=== PATIENT | female | born 1955 | race Caucasian/White ===

== ENCOUNTER → 2017-06-04 | Outpatient (CLI) | payer SELFPAY ==
[~2017-06-04] MED LIST: ASPI-1181 PO; FURO40TA5 PO; INSLAN SQ; INSU100C6 SQ; LOSA100T29 PO; METO-391 PO; POTA-79 PO
== END ==
LOC: RAH 13:01
PROVIDERS: ATTEND Physician Assistant Medical
DX: Z12.31 Encounter for screening mammogram for malignant neoplasm of breast (principal)
CPT/HCPCS: 77067

== ENCOUNTER → 2018-08-03 | Outpatient (CLI) | payer SELFPAY ==
[~2018-08-03] MED LIST changes: -LOSA100T29 PO; +LOSA100T58 PO
== END | disposition home or self-care (01) ==
LOC: RAH 11:13
PROVIDERS: ATTEND Physician Assistant Medical
DX: Z12.31 Encounter for screening mammogram for malignant neoplasm of breast (principal)
CPT/HCPCS: 77067

== ENCOUNTER → 2019-09-17 | Outpatient (CLI) | payer SELFPAY ==
[~2019-09-17] MED LIST changes: -ASPI-1181 PO; +ASPI-1443 PO
== END | disposition home or self-care (01) ==
LOC: RAH 07:29
PROVIDERS: ATTEND Physician Assistant Medical
DX: Z12.31 Encounter for screening mammogram for malignant neoplasm of breast (principal); R94.5 Abnormal results of liver function studies; Z90.49 Acquired absence of other specified parts of digestive tract
CPT/HCPCS: 76705; 77067

== ENCOUNTER 2019-10-13 09:24 | Emergency (ER) | payer BC, SELFPAY ==
[2019-10-13] MEDS ORDERED: ONDANSETRON HCL 4 MG/2 ML VIAL ONE (09:46)
[2019-10-13] MEDS ORDERED: FENTANYL CITRATE PF 50 MCG/1 ML 2ML VIAL ONE (09:47)
[2019-10-13 09:49] LABS: BASOPHILS % (AUTO) 0.2 % (0.0-5.0); EOSINOPHILS % (AUTO) 0.1 % (0.0-8.0); LYMPHOCYTES % (AUTO) 7.6 % (21.0-51.0); MEAN CORPUSCULAR HEMOGLOBIN 30.3 pg (27.0-33.0); MEAN CORPUSCULAR HGB CONC 32.4 g/dL (32.0-36.0); MEAN CORPUSCULAR VOLUME 93.6 fL (79-99); MONOCYTES % (AUTO) 9.5 % (3.0-13.0); NEUTROPHILS % (AUTO) 82.1 % (40.0-77.0); PLATELET COUNT (AUTO) 83 K/uL (130-400); RED BLOOD CELL COUNT(AUTO) 4.06 MIL/uL (4.00-5.50); RED CELL DISTRIBUTION WIDTH 13.8 % (11.0-15.5); WHITE BLOOD COUNT (AUTO) 8.6 K/uL (4.8-10.8)
[2019-10-13 10:07] LABS: BILIRUBIN,DIRECT 0.7 mg/dL (0.0-0.3); BILIRUBIN,TOTAL 2.1 mg/dL (0.2-1.0); CREATININE 1.6 mg/dL (0.5-1.5); POTASSIUM 4.7 mmol/L (3.5-5.1)
[2019-10-13 10:17] LABS: INR 1.11 (0.85-1.15); PARTIAL THROMBOPLASTIN TIME 28.5 SEC (26.3-35.5); PROTHROMBIN TIME 11.9 SEC (9.6-11.6)
[2019-10-13] MEDS ORDERED: MORPHINE SULFATE 4 MG/1ML SYG ONE (11:05)
== END 2019-10-13 14:32 | disposition home or self-care (01) ==
LOC: EDH 09:24
DX: S42.295A Other nondisplaced fracture of upper end of left humerus, initial encounter for closed fracture (principal); S00.83XA Contusion of other part of head, initial encounter; M25.522 Pain in left elbow; R07.89 Other chest pain; I10 Essential (primary) hypertension; E11.9 Type 2 diabetes mellitus without complications; Z90.710 Acquired absence of both cervix and uterus; Z90.49 Acquired absence of other specified parts of digestive tract; W01.0XXA Fall on same level from slipping, tripping and stumbling without subsequent striking against object, initial encounter; Y93.89 Activity, other specified; Y92.89 Other specified places as the place of occurrence of the external cause; Y99.8 Other external cause status
CPT/HCPCS: 36415; 70450; 71250; 72125; 73030; 73080; 73562; 80048; 80076; 82550; 85025; 85610; 85730; 93005; 96374; 96375; 99285; J2270; J2405; J3010

== ENCOUNTER 2019-11-15 13:34 | Inpatient (IN) | payer BC ==
[~2019-11-15] VITALS: Ht 162.6 cm; Wt 117.5 kg
[2019-11-15] MEDS ORDERED: ONDANSETRON HCL 4 MG/2 ML VIAL IV PRN (14:00)
[2019-11-15] MEDS ORDERED: LACTULOSE 20 GM/30 ML UDCUP PO PRN (14:00)
[2019-11-15] MEDS ORDERED: MAG HYDROX/AL HYDROX/SIMETH ES 30 ML SUSP UDCUP PO PRN (14:00)
[2019-11-15] MEDS ORDERED: ACETAMINOPHEN 325 MG TAB PO PRN (14:00)
[2019-11-15] MEDS ORDERED: GLUCAGON 1MG KIT 1 MG ML IM PRN (14:00)
[2019-11-15] MEDS ORDERED: POTASSIUM CHLORIDE 10% ELIXIR 20 MEQ/15 ML UDCUP PO PRN (14:00)
[2019-11-15] MEDS ORDERED: DEXTROSE 50%-WATER 50 ML DISP.SYRIN IV PRN (14:00)
[2019-11-15] MEDS ORDERED: LIDOCAINE HCL-MPF 1% 2ML VIAL IJ PRN (14:00)
[2019-11-15] MEDS ORDERED: DiphenhydrAMINE HCL 50 MG/ML VIAL IV PRN (14:00)
[2019-11-15] MEDS ORDERED: POTASSIUM CHLORIDE 20MEQ/100ML 100 ML IV PRN (14:00)
[2019-11-15] MEDS: METOLAZONE 2.5 MG TABLET PO SCH (14:00)
[2019-11-15] MEDS ORDERED: FURO40TA5 PO (14:12)
[2019-11-15] MEDS ORDERED: METO5TAB7 PO (14:12)
[2019-11-15] MEDS ORDERED: FLUT1BLS IH (14:12)
[2019-11-15] MEDS ORDERED: HYDR-4153 PO (14:12)
[2019-11-15] MEDS ORDERED: POTA-79 PO (14:17)
[2019-11-15] MEDS ORDERED: ZOLP5TAB8 PO (14:17)
[2019-11-15] MEDS ORDERED: DULA1.5P SQ (14:17)
[2019-11-15] MEDS ORDERED: INSU200I SQ (14:17)
[2019-11-15] MEDS ORDERED: FOLIC ACID PO (14:19)
[2019-11-15 14:20] LABS: BASOPHILS % (AUTO) 0.4 % (0.0-5.0); HEMATOCRIT 30.6 % (36-48); LYMPHOCYTES % (AUTO) 12.6 % (21.0-51.0); MEAN CORPUSCULAR HEMOGLOBIN 31.8 pg (27.0-33.0); MEAN CORPUSCULAR HGB CONC 33.7 g/dL (32.0-36.0); MEAN CORPUSCULAR VOLUME 94.4 fL (79-99); MONOCYTES % (AUTO) 12.2 % (3.0-13.0); NEUTROPHILS % (AUTO) 72.6 % (40.0-77.0); PLATELET COUNT (AUTO) 78 K/uL (130-400); RED BLOOD CELL COUNT(AUTO) 3.24 MIL/uL (4.00-5.50); RED CELL DISTRIBUTION WIDTH 14.9 % (11.0-15.5); WHITE BLOOD COUNT (AUTO) 5.1 K/uL (4.8-10.8)
[2019-11-15 14:30] LABS: CREATININE 1.5 mg/dL (0.5-1.5); POTASSIUM 3.5 mmol/L (3.5-5.1)
[2019-11-15 14:35] LABS: ALBUMIN 2.4 g/dL (3.5-5.0); BILIRUBIN,DIRECT 0.8 mg/dL (0.0-0.3); BILIRUBIN,TOTAL 1.8 mg/dL (0.2-1.0)
[2019-11-15 14:38] LABS: INR 1.16 (0.85-1.15); PARTIAL THROMBOPLASTIN TIME 27.5 SEC (26.3-35.5); PROTHROMBIN TIME 12.5 SEC (9.6-11.6)
[2019-11-15 14:47] LABS: APPEARANCE,URINE Clear (CLEAR); BILIRUBIN,URINE Negative (NEGATIVE); COLOR,URINE Yellow (YELLOW); GLUCOSE, URINE (UA) Negative (NEGATIVE); KETONES,URINE Negative (NEGATIVE); LEUKOCYTE ESTERASE ,URINE Negative (NEGATIVE); NITRATE,URINE Negative (NEGATIVE); OCCULT BLOOD,URINE Negative (NEGATIVE); PROTEIN,URINE Negative (NEGATIVE); UROBILINOGEN,URINE 0.2 mg/dL (0.2-1.0)
[2019-11-15] MEDS ORDERED: POTASSIUM CHLORIDE 20 MEQ ERTAB PO ONE (15:05)
[2019-11-15] MEDS ORDERED: METOLAZONE 2.5 MG TABLET ONE (15:06)
[2019-11-15 15:38] LABS: ERYTHROCYTE SEDIMENTATION RATE 21 MM/HR (0-30)
[2019-11-15] MEDS ORDERED: LIDOCAINE HCL 1% 20 ML VIAL ONE (16:01)
[2019-11-15 17:08] VITALS: BP 155/59
[2019-11-15] MEDS ORDERED: CLONIDINE HCL 0.1 MG TABLET PO PRN (17:15)
--- NOTE | 2019-11-15 19:00 | NUR ---
MD Dr EDWARDS called and updated on pt.s status.
[2019-11-15] MEDS: ACETAMINOPHEN EXTRA STRENGTH 500 MG TABLET PO PRN (19:47)
[2019-11-15] MEDS: PROPRANOLOL HCL 20 MG TAB PO SCH (19:47)
[2019-11-15] MEDS: POTASSIUM CHLORIDE 20 MEQ ERTAB PO SCH ×2 (19:48→20:54)
[2019-11-15 19:49] VITALS: BP 133/42
[2019-11-15] MEDS: INSULIN HUMULIN R 100 UNIT/ML 3ML SQ SCH (19:54)
[2019-11-15] MEDS ORDERED: HYDRALAZINE HCL 25 MG TABLET PO SCH (21:00)
[2019-11-15] MEDS: FUROSEMIDE 10 MG/ML 4ML VIAL IVP SCH (21:04)
[2019-11-15] MEDS: ZOLPIDEM TARTRATE 5 MG TAB PO PRN (21:04)
--- NOTE | 2019-11-15 21:15 | NUR ---
LASIX Pt is on LASIX iv,has pitting edema to both legs and arms,elevated on pillows.
[2019-11-15] MEDS: POTASSIUM CHLORIDE 20 MEQ ERTAB PO PRN (23:11)
--- NOTE | 2019-11-15 23:14 | NUR ---
SLEEP Pt sleeping,respirations even and unlabored.
[2019-11-15 23:48] VITALS: BP 115/41
--- NOTE | 2019-11-16 01:25 | NUR ---
SLEEP Pt resting quietly,arousable.Love cath patent,draining clear,yellow urine.
[2019-11-16 03:42] VITALS: BP 118/52
[2019-11-16] MEDS: FUROSEMIDE 10 MG/ML 4ML VIAL IVP SCH ×3 (05:00→20:44)
[2019-11-16 05:19] LABS: HEMATOCRIT 32.3 % (36-48); MEAN CORPUSCULAR HEMOGLOBIN 30.8 pg (27.0-33.0); MEAN CORPUSCULAR HGB CONC 32.8 g/dL (32.0-36.0); MEAN CORPUSCULAR VOLUME 93.9 fL (79-99); RED BLOOD CELL COUNT(AUTO) 3.44 MIL/uL (4.00-5.50); RED CELL DISTRIBUTION WIDTH 14.8 % (11.0-15.5); WHITE BLOOD COUNT (AUTO) 6.8 K/uL (4.8-10.8)
[2019-11-16 05:27] LABS: CREATININE 1.6 mg/dL (0.5-1.5); POTASSIUM 3.7 mmol/L (3.5-5.1)
[2019-11-16] MEDS: INSULIN HUMULIN R 100 UNIT/ML 3ML SQ SCH ×4 (05:40→21:18)
[2019-11-16] MEDS: POTASSIUM CHLORIDE 20 MEQ ERTAB PO PRN (06:06)
[2019-11-16 07:49] VITALS: BP 118/44
[2019-11-16] MEDS ORDERED: TRAMADOL HCL 50 MG TABLET PO PRN (08:15)
[2019-11-16] MEDS ORDERED: SENNOSIDES 8.6 MG TABLET PO PRN (08:45)
[2019-11-16] MEDS ORDERED: METOPROLOL SUCCINATE 50 MG TAB.SR.24H PO SCH (09:00)
[2019-11-16] MEDS ORDERED: FOLIC ACID 1 MG TABLET PO SCH (09:00)
[2019-11-16] MEDS: POTASSIUM CHLORIDE 20 MEQ ERTAB PO SCH ×3 (09:00→20:44)
[2019-11-16] MEDS ORDERED: LOSARTAN 100 MG TABLET PO SCH (09:00)
[2019-11-16] MEDS: PROPRANOLOL HCL 20 MG TAB PO SCH ×2 (09:00→20:43)
--- NOTE | 2019-11-16 09:30 | NUR ---
DR. CHARLES AWARE OF CONSULT
[2019-11-16] MEDS: SPIRONOLACTONE 25 MG TAB PO SCH ×2 (09:58→20:44)
[2019-11-16] MEDS: METOLAZONE 2.5 MG TABLET PO SCH (09:59)
[2019-11-16 10:04] LABS: MEAN CORPUSCULAR HEMOGLOBIN 31.3 pg (27.0-33.0); MEAN CORPUSCULAR HGB CONC 33.2 g/dL (32.0-36.0); MEAN CORPUSCULAR VOLUME 94.2 fL (79-99); PLATELET COUNT (AUTO) 90 K/uL (130-400); RED BLOOD CELL COUNT(AUTO) 3.29 MIL/uL (4.00-5.50); WHITE BLOOD COUNT (AUTO) 5.7 K/uL (4.8-10.8)
[2019-11-16 10:19] LABS: % IRON SATURATION 29.6 % (22-44); INR 1.16 (0.85-1.15); PROTHROMBIN TIME 12.5 SEC (9.6-11.6)
[2019-11-16 10:20] LABS: ALBUMIN 2.3 g/dL (3.5-5.0); BILIRUBIN,TOTAL 1.7 mg/dL (0.2-1.0); CREATININE 1.6 mg/dL (0.5-1.5); POTASSIUM 3.7 mmol/L (3.5-5.1); TOTAL PROTEIN, SERUM 5.9 g/dL (6.0-8.3)
[2019-11-16 10:47] LABS: EOSINOPHILS % (MANUAL) 1 % (1-6); LYMPHOCYTES % (MANUAL) 15 % (22-44); MAN.DIFF COMMENT-IMPRESSION MANUAL DIFFERENTIAL; MONOCYTES % (MANUAL) 5 % (2-9); PLATELET MORPHOLOGY COMMENT DECREASED; SEGMENTED NEUTROPHILS % 79 % (40-70)
[2019-11-16 11:01] VITALS: BP 133/46
--- NOTE | 2019-11-16 13:23 | NUR ---
DCP IA done by Robert Harrell RN. As per Robert pt is independent prior to admission, lives at home with spouse. Has a cane. Denies any other equipments/services. uses [facility] for med. Feels safe to go back home, still drives and works, spouse able to assist with transportation and needs as necessary. Verified spouse phone #: , faxed correction to registration. DC plan to home once stable. CM to cont to follow up. Addendum: 11/16/19 at 1325 by BRIAN PAREKH LVN CM Amended: Links added.
[2019-11-16] MEDS: FLUTICASONE/VILANTEROL 1 EACH BLST.W.DEV IH SCH (13:33)
[2019-11-16] MEDS ORDERED: ALBUMIN (HUMAN) 25% 50 ML IV SCH (13:45)
[2019-11-16] MEDS: PHARMACY COMMUNICATION MISC SCH ×2 (16:30→22:30)
[2019-11-16 16:31] VITALS: BP 111/53
[2019-11-16 20:00] VITALS: BP 153/71
[2019-11-16] MEDS: ZOLPIDEM TARTRATE 5 MG TAB PO PRN (20:45)
[2019-11-16] MEDS: ACETAMINOPHEN EXTRA STRENGTH 500 MG TABLET PO PRN (20:45)
[2019-11-16 23:54] VITALS: BP 116/58
[2019-11-17 03:59] LABS: BASOPHILS % (AUTO) 0.6 % (0.0-5.0); EOSINOPHILS % (AUTO) 3.6 % (0.0-8.0); HEMATOCRIT 30.4 % (36-48); LYMPHOCYTES % (AUTO) 20.1 % (21.0-51.0); MEAN CORPUSCULAR HEMOGLOBIN 31.2 pg (27.0-33.0); MEAN CORPUSCULAR HGB CONC 33.2 g/dL (32.0-36.0); MEAN CORPUSCULAR VOLUME 93.8 fL (79-99); MONOCYTES % (AUTO) 14.5 % (3.0-13.0); PLATELET COUNT (AUTO) 87 K/uL (130-400); RED BLOOD CELL COUNT(AUTO) 3.24 MIL/uL (4.00-5.50); RED CELL DISTRIBUTION WIDTH 14.7 % (11.0-15.5)
[2019-11-17 04:00] VITALS: BP 137/60
[2019-11-17 04:29] LABS: CREATININE 1.5 mg/dL (0.5-1.5); MAGNESIUM 1.5 mg/dL (1.80-2.40); PHOSPHORUS 3.7 mg/dL (2.5-4.9); POTASSIUM 3.3 mmol/L (3.5-5.1); THYROID STIMULATING HORMONE 2.85 uIU/mL (0.36-3.74); URIC ACID 6.4 mg/dL (2.6-7.2)
[2019-11-17] MEDS: PHARMACY COMMUNICATION MISC SCH ×4 (04:30→22:30)
[2019-11-17] MEDS: FUROSEMIDE 10 MG/ML 4ML VIAL IVP SCH ×3 (04:43→22:00)
[2019-11-17 07:18] LABS: HEPATITIS A ANTIBODY IGM Negative (Negative)
[2019-11-17] MEDS: INSULIN HUMULIN R 100 UNIT/ML 3ML SQ SCH ×4 (07:30→20:23)
[2019-11-17] MEDS: TRAMADOL HCL 50 MG TABLET PO PRN (07:43)
[2019-11-17 08:00] VITALS: BP 113/43
[2019-11-17] MEDS: SPIRONOLACTONE 25 MG TAB PO SCH ×2 (09:12→20:10)
[2019-11-17] MEDS: FOLIC ACID/VITAMIN B COMP W-C 1 CAP TAB PO SCH (09:12)
[2019-11-17] MEDS: PROPRANOLOL HCL 20 MG TAB PO SCH ×2 (09:13→20:10)
[2019-11-17] MEDS: POTASSIUM CHLORIDE 20 MEQ ERTAB PO SCH ×4 (09:13→20:10)
[2019-11-17] MEDS: METOLAZONE 2.5 MG TABLET PO SCH (09:13)
[2019-11-17] MEDS: FLUTICASONE/VILANTEROL 1 EACH BLST.W.DEV IH SCH (09:14)
[2019-11-17 11:40] VITALS: BP 121/52
--- NOTE | 2019-11-17 11:45 | NUR ---
i have called dr ruano's office and left message of magnesium lv 1.5 and need for potassium protocol; pending call back
[2019-11-17] MEDS: MAGNESIUM 2GM PREMIX 50ML 50 ML IV SCH (12:42)
[2019-11-17] MEDS: ACETAMINOPHEN EXTRA STRENGTH 500 MG TABLET PO PRN (12:50)
[2019-11-17] MEDS: ALBUMIN (HUMAN) 25% 100 ML IV PRN (14:39)
[2019-11-17 15:14] LABS: ALPHA-1-ANTITRYPSIN 131 mg/dL (101-187)
[2019-11-17 16:00] VITALS: BP 127/56
[2019-11-17 16:56] LABS: CHLORIDE,URINE RANDOM 134 mmol/L (110-250); COLLECTION PERIOD,URINE 24 HR; POTASSIUM,URINE RANDOM 17 mmol/L (25-125); SODIUM,URINE RANDOM 119 mmol/l (40-220); TOTAL VOLUME 24HRS,URINE 7250 mL; TPROTEIN TIMED,URINE 6 mg/dL; TPROTEIN U,24HR CALC 435 mg/24HR (0-165)
[2019-11-17] MEDS: ZOLPIDEM TARTRATE 5 MG TAB PO PRN (20:11)
[2019-11-17 20:33] VITALS: BP 104/41
[2019-11-18 00:05] VITALS: BP 116/34
[2019-11-18] MEDS: PHARMACY COMMUNICATION MISC SCH (03:14)
[2019-11-18 05:08] VITALS: BP 122/40
[2019-11-18 05:39] LABS: HEMATOCRIT 30.1 % (36-48); MEAN CORPUSCULAR HEMOGLOBIN 30.6 pg (27.0-33.0); MEAN CORPUSCULAR HGB CONC 32.6 g/dL (32.0-36.0); MEAN CORPUSCULAR VOLUME 94.1 fL (79-99); PLATELET COUNT (AUTO) 73 K/uL (130-400); WHITE BLOOD COUNT (AUTO) 4.1 K/uL (4.8-10.8)
[2019-11-18 05:57] LABS: BASOPHILS % (MANUAL) 1 % (0-2); EOSINOPHILS % (MANUAL) 4 % (1-6); LYMPHOCYTES % (MANUAL) 15 % (22-44); MONOCYTES % (MANUAL) 12 % (2-9); SEGMENTED NEUTROPHILS % 68 % (40-70)
[2019-11-18 05:58] LABS: MAN.DIFF COMMENT-IMPRESSION MANUAL DIFFERENTIAL
[2019-11-18 06:12] LABS: ALBUMIN 2.5 g/dL (3.5-5.0); BILIRUBIN,DIRECT 0.6 mg/dL (0.0-0.3); BILIRUBIN,TOTAL 1.3 mg/dL (0.2-1.0); CREATININE 1.5 mg/dL (0.5-1.5); MAGNESIUM 1.6 mg/dL (1.80-2.40); POTASSIUM 3.5 mmol/L (3.5-5.1)
[2019-11-18] MEDS: FUROSEMIDE 10 MG/ML 4ML VIAL IVP SCH ×3 (06:18→22:22)
[2019-11-18] MEDS: INSULIN HUMULIN R 100 UNIT/ML 3ML SQ SCH ×4 (06:19→22:20)
[2019-11-18 08:00] VITALS: BP 134/74
[2019-11-18] MEDS ORDERED: INSLAN SQ (08:41)
[2019-11-18] MEDS: ALBUMIN (HUMAN) 25% 100 ML IV PRN (10:14)
[2019-11-18] MEDS: SPIRONOLACTONE 25 MG TAB PO SCH ×2 (10:19→21:59)
[2019-11-18] MEDS: METOLAZONE 2.5 MG TABLET PO SCH (10:19)
[2019-11-18] MEDS: FOLIC ACID/VITAMIN B COMP W-C 1 CAP TAB PO SCH (10:19)
[2019-11-18] MEDS: MAGNESIUM OXIDE 400 MG TABLET PO SCH ×2 (10:19→22:21)
[2019-11-18] MEDS: PROPRANOLOL HCL 20 MG TAB PO SCH ×2 (10:20→21:59)
[2019-11-18] MEDS: POTASSIUM CHLORIDE 20 MEQ ERTAB PO SCH ×3 (10:20→22:01)
[2019-11-18] MEDS: FLUTICASONE/VILANTEROL 1 EACH BLST.W.DEV IH SCH (10:21)
[2019-11-18] MEDS: MAGNESIUM 2GM PREMIX 50ML 50 ML IV SCH (11:08)
--- NOTE | 2019-11-18 11:44 | NUR ---
CM Note: [facility] pending approval and delivery CM spoke to pt regarding request for 3in1 chair, pt MADDISON signed for [facility]. Faxed order and clinicals to [facility], confirmation received. Spoke to Myra harrington/[facility] will work as soon as request received, aware to delivery 3 in 1 chair at pt's house. Pt pending approval and delivery. Primary nurse aware. CM to cont to follow up.
[2019-11-18] MEDS ORDERED: SPIR50TA5 PO (11:45)
[2019-11-18] MEDS ORDERED: METO10TA8 PO (11:46)
--- NOTE | 2019-11-18 11:46 | NUR ---
CM Note: [facility] pending approval and chair time CM spoke to Xenia Reina, currently forwarded request to pharmacy, pt pending approval and chair time. Made aware pt pending PICC placement today, will send PICC info and order to use once available. Primary nurse aware. CM to cont to follow up.
[2019-11-18 11:47] VITALS: BP 146/69
[2019-11-18] MEDS ORDERED: FURO80TA3 PO (11:49)
[2019-11-18] MEDS: ACETAMINOPHEN EXTRA STRENGTH 500 MG TABLET PO PRN (12:15)
--- NOTE | 2019-11-18 14:00 | NUR ---
CM Note: [facility] not in network, [facility] pending approval and delivery CM spoke to Myra harrington/[facility], as per rep pt insurance not in network after all. Unable to process order. CM faxed order and clinicals to [facility]. Spoke to [facility]ves process request. Pt pending approval and delivery for 3 in1 chair, aware to deliver at pt's house. Primary nurse aware. CM to cont to follow up.
[2019-11-18 14:12] LABS: HEPATITIS Bs ANTIGEN SCREEN P Negative (Negative)
[2019-11-18] MEDS ORDERED: MAGNESIUM 2GM PREMIX 50ML 50 ML IV PRN (14:30)
--- NOTE | 2019-11-18 15:36 | NUR ---
PICC LINE INSERTED TO RT UPPER ARM, CXR ORDERED
[2019-11-18] MEDS: TRAMADOL HCL 50 MG TABLET PO PRN ×2 (15:38→22:00)
[2019-11-18] MEDS: POTASSIUM CHLORIDE 20 MEQ ERTAB PO PRN (17:23)
[2019-11-18 20:03] VITALS: BP 111/65
[2019-11-18] MEDS: ZOLPIDEM TARTRATE 5 MG TAB PO PRN (22:00)
[2019-11-18] MEDS: INSULIN GLARGINE 100 UNITS/ML 10 ML VIAL SQ SCH (22:19)
[2019-11-19] MEDS: FUROSEMIDE 10 MG/ML 4ML VIAL IVP SCH ×3 (05:08→20:49)
[2019-11-19 05:28] LABS: BASOPHILS % (AUTO) 0.7 % (0.0-5.0); EOSINOPHILS % (AUTO) 3.2 % (0.0-8.0); HEMATOCRIT 30.6 % (36-48); LYMPHOCYTES % (AUTO) 19.3 % (21.0-51.0); MEAN CORPUSCULAR HEMOGLOBIN 31.1 pg (27.0-33.0); MEAN CORPUSCULAR VOLUME 94.2 fL (79-99); MONOCYTES % (AUTO) 14.9 % (3.0-13.0); NEUTROPHILS % (AUTO) 61.7 % (40.0-77.0); PLATELET COUNT (AUTO) 77 K/uL (130-400); RED BLOOD CELL COUNT(AUTO) 3.25 MIL/uL (4.00-5.50); RED CELL DISTRIBUTION WIDTH 14.2 % (11.0-15.5); WHITE BLOOD COUNT (AUTO) 4.4 K/uL (4.8-10.8)
[2019-11-19 05:30] VITALS: BP 121/67
[2019-11-19 05:50] LABS: CARBON DIOXIDE 37 mmol/L (21-32); CHLORIDE 99 mmol/L (101-111); CREATININE 1.3 mg/dL (0.5-1.5); GLUCOSE,RANDOM 172 mg/dL (70-105); POTASSIUM 3.4 mmol/L (3.5-5.1); SODIUM SERUM 138 mmol/L (136-145); UREA NITROGEN, BLOOD 25 mg/dL (7-18)
[2019-11-19] MEDS: INSULIN HUMULIN R 100 UNIT/ML 3ML SQ SCH ×4 (06:05→20:50)
[2019-11-19 06:12] LABS: GLOMERULAR FILTR. RATE CALC 44 mL/min (>60)
[2019-11-19] MEDS: PROPRANOLOL HCL 20 MG TAB PO SCH ×2 (07:57→20:57)
[2019-11-19] MEDS: POTASSIUM CHLORIDE 20 MEQ ERTAB PO SCH ×3 (07:57→20:48)
[2019-11-19] MEDS: FOLIC ACID/VITAMIN B COMP W-C 1 CAP TAB PO SCH (07:57)
[2019-11-19] MEDS: MAGNESIUM OXIDE 400 MG TABLET PO SCH ×2 (07:57→20:48)
[2019-11-19] MEDS: SPIRONOLACTONE 25 MG TAB PO SCH ×2 (07:57→20:48)
[2019-11-19] MEDS: FLUTICASONE/VILANTEROL 1 EACH BLST.W.DEV IH SCH (07:58)
[2019-11-19] MEDS: METOLAZONE 2.5 MG TABLET PO SCH (07:58)
[2019-11-19] MEDS: ALBUMIN (HUMAN) 25% 100 ML IV.SOLN. IV SCH (07:58)
[2019-11-19 08:24] VITALS: BP 114/64
[2019-11-19 11:34] VITALS: BP 113/55
--- NOTE | 2019-11-19 13:00 | NUR ---
CM Note: [facility], pending to deliver at home CM spoke to Raisa harrington/Deana ARNETT. Pt has approval for 3 in 1 chair, will deliver today at pt's house. Primary nurse aware. CM to cont to follow up.
--- NOTE | 2019-11-19 13:30 | NUR ---
CM Note: [facility] approval, pending chair time CM spoke to Zully harrington/ DEDRICK, pt has approval for Albumin 25% 25g/100ml IV 3x/wk x 3 weeks. Informed pt, requested to have family member register today so that appointment time can be given. Pt to inform nurse once registration complete so that pt can be discharged once MD clear. Primary nurse aware. CM to cont to follow up.
[2019-11-19] MEDS: TRAMADOL HCL 50 MG TABLET PO PRN (16:14)
--- NOTE | 2019-11-19 16:15 | NUR ---
CM Note: [facility] pending chair time CM spoke to Zully, verbalized family able to register and paper works received. Pending to give chair time once pt has a tentative dc day. Request for CM or patient to call back once pt has DC order so that chair time can be scheduled. Verbalized it will be Xenia working tomorrow. Informe Zully will call back once DC order in place to secure appointment day and time. Primary nurse aware. CM to cont to follow up.
--- NOTE | 2019-11-19 16:19 | NUR ---
CM Note: pending Dr Araujo response CM informed Dr. Hill for approval for AIU w/VB. Per Dr Hill she is out for the weekend, Dr Araujo covering for her this weekend. CM informed Dr Araujo regarding approval for AIU w/VB via secure text. Awaiting MD to respond. CM will need to call [facility] to schedule appointment day and time prior to DC. Primary nurse aware. CM to cont to follow up.
[2019-11-19 16:20] VITALS: BP 124/56
[2019-11-19] MEDS: HYDROCODONE/ACETAMINOPHEN 7.5/325 MG TAB PO PRN ×2 (16:42→20:48)
[2019-11-19 19:44] VITALS: BP 119/57
[2019-11-19] MEDS: ZOLPIDEM TARTRATE 5 MG TAB PO PRN (20:47)
[2019-11-19] MEDS: INSULIN GLARGINE 100 UNITS/ML 10 ML VIAL SQ SCH (20:49)
[2019-11-19 23:51] VITALS: BP 127/72
[2019-11-20 05:45] VITALS: BP 109/44
[2019-11-20] MEDS: FUROSEMIDE 10 MG/ML 4ML VIAL IVP SCH ×3 (05:58→22:59)
[2019-11-20 06:25] LABS: BASOPHILS % (AUTO) 0.5 % (0.0-5.0); EOSINOPHILS % (AUTO) 3.4 % (0.0-8.0); HEMATOCRIT 28.4 % (36-48); LYMPHOCYTES % (AUTO) 20.6 % (21.0-51.0); MEAN CORPUSCULAR HEMOGLOBIN 30.8 pg (27.0-33.0); MEAN CORPUSCULAR HGB CONC 32.7 g/dL (32.0-36.0); MONOCYTES % (AUTO) 14.8 % (3.0-13.0); NEUTROPHILS % (AUTO) 60.5 % (40.0-77.0); PLATELET COUNT (AUTO) 74 K/uL (130-400); RED BLOOD CELL COUNT(AUTO) 3.02 MIL/uL (4.00-5.50); RED CELL DISTRIBUTION WIDTH 13.7 % (11.0-15.5); WHITE BLOOD COUNT (AUTO) 4.1 K/uL (4.8-10.8)
[2019-11-20 06:38] LABS: MAGNESIUM 1.5 mg/dL (1.80-2.40); POTASSIUM 3.6 mmol/L (3.5-5.1)
[2019-11-20] MEDS: INSULIN HUMULIN R 100 UNIT/ML 3ML SQ SCH ×4 (06:43→20:41)
[2019-11-20 07:09] LABS: CREATININE 1.4 mg/dL (0.5-1.5)
[2019-11-20 08:08] VITALS: BP 115/57
[2019-11-20] MEDS: METOLAZONE 2.5 MG TABLET PO SCH (09:15)
[2019-11-20] MEDS: ALBUMIN (HUMAN) 25% 100 ML IV.SOLN. IV SCH (09:15)
[2019-11-20] MEDS: MAGNESIUM OXIDE 400 MG TABLET PO SCH ×2 (09:15→20:34)
[2019-11-20] MEDS: PROPRANOLOL HCL 20 MG TAB PO SCH ×2 (09:15→20:35)
[2019-11-20] MEDS: FOLIC ACID/VITAMIN B COMP W-C 1 CAP TAB PO SCH (09:16)
[2019-11-20] MEDS: FLUTICASONE/VILANTEROL 1 EACH BLST.W.DEV IH SCH (09:16)
[2019-11-20] MEDS: POTASSIUM CHLORIDE 20 MEQ ERTAB PO SCH ×3 (09:16→20:35)
[2019-11-20] MEDS: SPIRONOLACTONE 25 MG TAB PO SCH ×2 (09:16→20:35)
[2019-11-20 11:17] VITALS: BP 117/48
[2019-11-20] MEDS: MAGNESIUM 2GM PREMIX 50ML 50 ML IV SCH (11:53)
[2019-11-20 16:13] VITALS: BP 126/50
[2019-11-20 20:00] VITALS: BP 111/51
[2019-11-20] MEDS: INSULIN GLARGINE 100 UNITS/ML 10 ML VIAL SQ SCH (20:40)
--- NOTE | 2019-11-20 20:41 | NUR ---
PATIENT RECEIVED IN CARDIAC CHAIR, AAOX4. NO ACUTE DISTRESS OR C/O PAIN VOICED. POC DISCUSSED WITH PATIENT. SHE STATES THE EDEMA TO HER LEGS HAS DECREASED. PLAN FOR DISCHARGE FRIDAY. CALL SEAY IS WITHIN REACH, WILL CONT TO MONITOR CLOSELY. INSTRUCTED TO CALL FOR ASSISTANCE IF REQUIRED, PATIENT VOICED AGREEMENT. TELEMONITORING SINUS 75.
[2019-11-20] MEDS: ZOLPIDEM TARTRATE 5 MG TAB PO PRN (20:49)
[2019-11-20] MEDS: ACETAMINOPHEN EXTRA STRENGTH 500 MG TABLET PO PRN (20:49)
--- NOTE | 2019-11-20 23:49 | NUR ---
PATIENT SLEEPING IN CARDIAC CHAIR.
[2019-11-21] VITALS: BP 125/57
[2019-11-21 03:46] VITALS: BP 109/53
[2019-11-21] MEDS: INSULIN HUMULIN R 100 UNIT/ML 3ML SQ SCH ×4 (05:55→21:51)
[2019-11-21] MEDS: FUROSEMIDE 10 MG/ML 4ML VIAL IVP SCH ×3 (06:52→22:02)
[2019-11-21] MEDS: FOLIC ACID/VITAMIN B COMP W-C 1 CAP TAB PO SCH (08:01)
[2019-11-21] MEDS: PROPRANOLOL HCL 20 MG TAB PO SCH ×2 (08:01→21:41)
[2019-11-21] MEDS: METOLAZONE 2.5 MG TABLET PO SCH (08:01)
[2019-11-21] MEDS: MAGNESIUM OXIDE 400 MG TABLET PO SCH ×2 (08:01→21:42)
[2019-11-21] MEDS: SPIRONOLACTONE 25 MG TAB PO SCH ×2 (08:05→21:41)
[2019-11-21] MEDS: POTASSIUM CHLORIDE 20 MEQ ERTAB PO SCH ×3 (08:06→21:41)
[2019-11-21] MEDS: FLUTICASONE/VILANTEROL 1 EACH BLST.W.DEV IH SCH (08:09)
[2019-11-21 08:30] VITALS: BP 118/62
[2019-11-21] MEDS: ALBUMIN (HUMAN) 25% 100 ML IV.SOLN. IV SCH (09:37)
[2019-11-21 14:02] VITALS: BP 115/46
[2019-11-21] MEDS: ACETAMINOPHEN EXTRA STRENGTH 500 MG TABLET PO PRN (14:36)
[2019-11-21 16:49] VITALS: BP 128/57
[2019-11-21 20:30] VITALS: BP 111/54
[2019-11-21] MEDS: ZOLPIDEM TARTRATE 5 MG TAB PO PRN (21:41)
[2019-11-21] MEDS: INSULIN GLARGINE 100 UNITS/ML 10 ML VIAL SQ SCH (21:51)
[2019-11-22] MEDS: FUROSEMIDE 10 MG/ML 4ML VIAL IVP SCH ×2 (06:08→14:00)
[2019-11-22 06:09] LABS: BASOPHILS % (AUTO) 0.3 % (0.0-5.0); EOSINOPHILS % (AUTO) 2.4 % (0.0-8.0); HEMATOCRIT 28.9 % (36-48); LYMPHOCYTES % (AUTO) 19.5 % (21.0-51.0); MEAN CORPUSCULAR HEMOGLOBIN 30.8 pg (27.0-33.0); MEAN CORPUSCULAR HGB CONC 33.2 g/dL (32.0-36.0); MEAN CORPUSCULAR VOLUME 92.6 fL (79-99); MONOCYTES % (AUTO) 15.2 % (3.0-13.0); NEUTROPHILS % (AUTO) 62.1 % (40.0-77.0); PLATELET COUNT (AUTO) 63 K/uL (130-400); RED BLOOD CELL COUNT(AUTO) 3.12 MIL/uL (4.00-5.50); RED CELL DISTRIBUTION WIDTH 13.4 % (11.0-15.5); WHITE BLOOD COUNT (AUTO) 3.7 K/uL (4.8-10.8)
[2019-11-22 06:30] LABS: ALBUMIN 3.9 g/dL (3.5-5.0); BILIRUBIN,TOTAL 1.9 mg/dL (0.2-1.0); CREATININE 1.6 mg/dL (0.5-1.5); MAGNESIUM 1.6 mg/dL (1.80-2.40); POTASSIUM 3.4 mmol/L (3.5-5.1); TOTAL PROTEIN, SERUM 6.8 g/dL (6.0-8.3)
[2019-11-22] MEDS: INSULIN HUMULIN R 100 UNIT/ML 3ML SQ SCH ×2 (07:30→11:30)
[2019-11-22 08:49] VITALS: BP 120/48
[2019-11-22] MEDS ORDERED: SPIRONOLACTONE 25 MG TAB PO SCH (09:00)
[2019-11-22] MEDS ORDERED: INSLAN SQ (09:11)
[2019-11-22] MEDS ORDERED: METO25TA6 PO (09:13)
[2019-11-22] MEDS: FOLIC ACID/VITAMIN B COMP W-C 1 CAP TAB PO SCH (09:31)
[2019-11-22] MEDS: METOLAZONE 2.5 MG TABLET PO SCH (09:32)
[2019-11-22] MEDS: POTASSIUM CHLORIDE 20 MEQ ERTAB PO SCH ×2 (09:32→14:00)
[2019-11-22] MEDS: MAGNESIUM OXIDE 400 MG TABLET PO SCH (09:33)
[2019-11-22] MEDS: PROPRANOLOL HCL 20 MG TAB PO SCH (09:33)
[2019-11-22] MEDS: TRAMADOL HCL 50 MG TABLET PO PRN (09:35)
[2019-11-22] MEDS: FLUTICASONE/VILANTEROL 1 EACH BLST.W.DEV IH SCH (09:43)
--- NOTE | 2019-11-22 10:02 | NUR ---
CM Note: [facility] chair time TTS CM spoke to Xenia harrington/DEDRICK, scheduled set up for patient. Cofirmed appointment TTS @ 10AM. Charge nurse Rimma reid. CM to cont to follow up.
--- NOTE | 2019-11-22 10:40 | NUR ---
DR. EDWARDS HERE , AND REVIEW PLAN OF CARE WITH NEW ORDERS TO FOLLOW . FOR DISCHARGE SUMMARY .
--- NOTE | 2019-11-22 14:00 | NUR ---
DISCHARGE SUMMARY WAS REVIEW . WITH DR. HERNANDEZ. DISCHARGE HOME, WITH A RT UPPER ARM .PICC LINE, . PORTS X 2 WERE FLUSH WITH THE 10 CC OF SALINE TO EACH PORT. DENIES ANY PAIN. WILL BE PICKING HER UP.
[2019-11-22] MEDS ORDERED: INSULIN GLARGINE 100 UNITS/ML 10 ML VIAL SQ SCH (21:00)
== END 2019-11-22 14:21 | disposition home or self-care (01) | DRG 433 ==
LOC: EDH 13:34 → EDHIP 13:35 → OBSVTOIN 13:35 → 3AH 16:43
PROVIDERS: ADMIT Internal Medicine; ATTEND Internal Medicine
PROC: 02HV33Z Insertion of Infusion Device into Superior Vena Cava, Percutaneous Approach (ICD-10-PCS; principal; 2019-11-15)
DX: K74.60 Unspecified cirrhosis of liver (principal); N17.9 Acute kidney failure, unspecified; S42.301A Unspecified fracture of shaft of humerus, right arm, initial encounter for closed fracture; F13.20 Sedative, hypnotic or anxiolytic dependence, uncomplicated; Z68.42 Body mass index [BMI] 45.0-49.9, adult; R18.8 Other ascites; B15.9 Hepatitis A without hepatic coma; R60.1 Generalized edema; K76.0 Fatty (change of) liver, not elsewhere classified; E11.22 Type 2 diabetes mellitus with diabetic chronic kidney disease; E11.42 Type 2 diabetes mellitus with diabetic polyneuropathy; E66.01 Morbid (severe) obesity due to excess calories; I12.9 Hypertensive chronic kidney disease with stage 1 through stage 4 chronic kidney disease, or unspecified chronic kidney disease; G47.00 Insomnia, unspecified; D69.6 Thrombocytopenia, unspecified; J45.909 Unspecified asthma, uncomplicated; R16.1 Splenomegaly, not elsewhere classified; E88.09 Other disorders of plasma-protein metabolism, not elsewhere classified
CPT/HCPCS: 36415; 71045; 76700; 80048; 80051; 80053; 80076; 81003; 82103; 82390; 82607; 82728; 82746; 82948; 82977; 83516; 83540; 83550; 83735; 83880; 83935; 84100; 84156; 84300; 84443; 84550; 85025; 85027; 85049; 85610; 85651; 85730; 86038; 86160; 86215; 86235; 86255; 86704; 86706; 86708; 86709; 86717; 87340; 87350; 87520; 93306; 97039; C1894; G0378; J1815; J1940; J3475; P9046

== ENCOUNTER 2020-02-04 20:07 | Inpatient (IN) | payer BC, OTHER ==
[~2020-02-04] VITALS: Ht 170.2 cm; Wt 113.8 kg
[~2020-02-04 20:07] MED LIST changes: -ASPI-1443 PO; +FLUT1BLS IH; +FOLIC ACID PO; -FURO40TA5 PO; +FURO80TA3 PO; -INSU100C6 SQ; -LOSA100T58 PO; -METO-391 PO; +METO10TA8 PO; +METO25TA6 PO; -POTA-79 PO; +SPIR50TA5 PO; +ZOLP5TAB8 PO
[2020-02-04 20:42] LABS: BASOPHILS % (AUTO) 0.4 % (0.0-5.0); EOSINOPHILS % (AUTO) 0.4 % (0.0-8.0); HEMATOCRIT 34.3 % (36-48); LYMPHOCYTES % (AUTO) 12.3 % (21.0-51.0); MEAN CORPUSCULAR HEMOGLOBIN 30.8 pg (27.0-33.0); MEAN CORPUSCULAR HGB CONC 34.7 g/dL (32.0-36.0); MEAN CORPUSCULAR VOLUME 88.9 fL (79-99); MONOCYTES % (AUTO) 10.3 % (3.0-13.0); NEUTROPHILS % (AUTO) 76.4 % (40.0-77.0); PLATELET COUNT (AUTO) 68 K/uL (130-400); RED BLOOD CELL COUNT(AUTO) 3.86 MIL/uL (4.00-5.50); RED CELL DISTRIBUTION WIDTH 12.2 % (11.0-15.5); WHITE BLOOD COUNT (AUTO) 5.4 K/uL (4.8-10.8)
[2020-02-04 20:43] LABS: ABG BASE EXCESS 5.6 mmol/L (-2.0-3.0); ABG HCO3 28.1 mmol/L (21.0-28.0); ABG OXYGEN SATURATION 97.1 % (95.0-99.0); ABG PCO2 34 mmHg (32-45)
[2020-02-04] MEDS ORDERED: SODIUM CHLORIDE 0.9% 1000ML 1,000 ML IV ONE (20:48)
[2020-02-04] MEDS ORDERED: INSULIN HUMULIN R 100 UNIT/ML 3ML ONE ×2 (20:50→23:40)
[2020-02-04 21:03] LABS: INR 1.06 (0.85-1.15); PROTHROMBIN TIME 11.4 SEC (9.6-11.6)
[2020-02-04] MEDS ORDERED: ONDANSETRON HCL 4 MG/2 ML VIAL ONE (21:03)
[2020-02-04 21:04] LABS: AMPHET/METH SCREEN,URINE NEGATIVE (NEGATIVE); BARBITURATE SCREEN, URINE NEGATIVE (NEGATIVE); BENZODIAZEPINES SCREEN,URINE NEGATIVE (NEGATIVE); CANNABINOID SCREEN,URINE NEGATIVE (NEGATIVE); COCAINE SCREEN,URINE NEGATIVE (NEGATIVE); OPIATE SCREEN,URINE NEGATIVE (NEGATIVE); PHENCYCLIDINE SCREEN,URINE NEGATIVE (NEGATIVE)
[2020-02-04 21:06] LABS: ALBUMIN 3.1 g/dL (3.5-5.0); BILIRUBIN,TOTAL 2.4 mg/dL (0.2-1.0); CREATININE 2.3 mg/dL (0.5-1.5); POTASSIUM 3.2 mmol/L (3.5-5.1); TOTAL PROTEIN, SERUM 7.7 g/dL (6.0-8.3)
[2020-02-04] MEDS ORDERED: DEXTROSE 50%-WATER 50 ML DISP.SYRIN IV PRN (22:00)
[2020-02-04] MEDS ORDERED: GLUCAGON 1MG KIT 1 MG ML IM PRN (22:00)
[2020-02-04 22:43] LABS: APPEARANCE,URINE CLEAR (CLEAR); BILIRUBIN,URINE NEGATIVE (NEGATIVE); GLUCOSE, URINE (UA) >=1000 mg/dL (NEGATIVE); KETONES,URINE NEGATIVE (NEGATIVE); LEUKOCYTE ESTERASE ,URINE NEGATIVE (NEGATIVE); NITRATE,URINE NEGATIVE (NEGATIVE); OCCULT BLOOD,URINE TRACE-INTACT (NEGATIVE); PROTEIN,URINE NEGATIVE (NEGATIVE)
[2020-02-04 22:44] LABS: COLOR,URINE STRAW (YELLOW)
[2020-02-04 22:45] LABS: BACTERIA,URINE None Seen /HPF (None Seen); RBC,URINE 0-1 /HPF (0-1); SQUAMOUS EPITHELIAL CELL,UR Rare /HPF (0-2); WBC,URINE None Seen /HPF (0-1); YEAST,URINE BUDDING None Seen /HPF (None Seen)
[2020-02-04] MEDS ORDERED: LACTULOSE 20 GM/30 ML UDCUP ONE (23:21)
[2020-02-05 00:15] VITALS: BP 121/55
[2020-02-05] MEDS: INSULIN R NPO SSI SQ SCH ×3 (06:14→12:23)
[2020-02-05 08:45] VITALS: BP 140/49
[2020-02-05] MEDS ORDERED: DiphenhydrAMINE HCL 50 MG/ML VIAL IV PRN (10:45)
[2020-02-05] MEDS ORDERED: LACTULOSE 20 GM/30 ML UDCUP PO PRN (10:45)
[2020-02-05] MEDS ORDERED: MAG HYDROX/AL HYDROX/SIMETH ES 30 ML SUSP UDCUP PO PRN (10:45)
[2020-02-05] MEDS ORDERED: DIPHENHYDRAMINE HCL 25 MG CAPSULE PO PRN (10:45)
[2020-02-05] MEDS ORDERED: INSREG SQ (10:56)
[2020-02-05] MEDS ORDERED: INSLAN SQ (10:56)
[2020-02-05] MEDS ORDERED: POTA20TA12 PO (10:56)
[2020-02-05] MEDS ORDERED: LOSA25TA41 PO (10:56)
[2020-02-05] MEDS ORDERED: METO10TA8 PO (10:56)
[2020-02-05] MEDS ORDERED: INSULIN GLARGINE 100 UNITS/ML 10 ML VIAL SQ SCH (11:15)
[2020-02-05] MEDS ORDERED: LIDOCAINE HCL-MPF 1% 2ML VIAL IJ PRN ×2 (11:15→14:30)
[2020-02-05] MEDS ORDERED: LACTULOSE 20 GM/30 ML UDCUP PO SCH (11:15)
[2020-02-05] MEDS ORDERED: POTASSIUM CHLORIDE 10MEQ/100ML 100 ML IV PRN (11:15)
[2020-02-05] MEDS ORDERED: POTASSIUM CHLORIDE 10% ELIXIR 20 MEQ/15 ML UDCUP PO PRN ×2 (11:15→14:30)
[2020-02-05] MEDS ORDERED: POTASSIUM CHLORIDE 20 MEQ ERTAB PO PRN (11:15)
[2020-02-05 11:35] LABS: CREATININE 1.9 mg/dL (0.5-1.5)
[2020-02-05 11:40] LABS: POTASSIUM 2.4 mmol/L (3.5-5.1)
[2020-02-05 12:14] VITALS: BP 133/55
[2020-02-05] MEDS: LIDOCAINE HCL-MPF 1% 2ML VIAL IJ PRN ×2 (12:26→15:40)
[2020-02-05] MEDS: SODIUM CHLORIDE 0.9% 1000ML 1,000 ML IV SCH (12:26)
[2020-02-05] MEDS: POTASSIUM CHLORIDE 10MEQ/100ML 100 ML IV PRN ×2 (12:27→15:37)
[2020-02-05] MEDS ORDERED: COMPOUND IV REFRIGERATED 1 EACH IVSOLN MISC PRN (12:45)
[2020-02-05] MEDS ORDERED: POTASSIUM CHLORIDE 20MEQ/100ML 100 ML IV PRN (14:30)
[2020-02-05] MEDS: FOLIC ACID 5 MG/ML 10 ML VIAL IV SCH (15:38)
[2020-02-05] MEDS: POTASSIUM CHLORIDE 20 MEQ ERTAB PO PRN ×2 (15:38→18:08)
[2020-02-05 16:52] VITALS: BP 121/40
[2020-02-05] MEDS: FLUTICASONE/VILANTEROL 1 EACH BLST.W.DEV IH SCH (17:02)
[2020-02-05] MEDS: INSULIN HUMULIN R 100 UNIT/ML 3ML SQ SCH ×2 (17:05→21:03)
[2020-02-05 20:00] VITALS: BP 130/55
[2020-02-05] MEDS: LACTULOSE 20 GM/30 ML UDCUP PO SCH (21:00)
[2020-02-05] MEDS: POTASSIUM CHLORIDE 20 MEQ ERTAB PO SCH (21:00)
[2020-02-05] MEDS: INSULIN GLARGINE 100 UNITS/ML 10 ML VIAL SQ SCH (21:03)
[2020-02-05] MEDS ORDERED: HYDROCODONE/ACETAMINOPHEN 5/325 MG TAB PO PRN (22:15)
[2020-02-05] MEDS ORDERED: OXYMETAZOLINE HCL SPRAY 15 ML BOTTLE EN PRN ×2 (22:15→23:45)
[2020-02-05] MEDS ORDERED: OXYMETAZOLINE HCL SPRAY 15 ML BOTTLE ONE (22:15)
[2020-02-05] MEDS ORDERED: HYDROCODONE/ACETAMINOPHEN 5/325 MG TAB ONE (22:19)
[2020-02-06] VITALS: BP 122/58
[2020-02-06] MEDS: SODIUM CHLORIDE 0.9% 1000ML 1,000 ML IV SCH ×2 (01:53→15:57)
[2020-02-06 04:00] VITALS: BP 120/71
[2020-02-06 06:02] LABS: HEMATOCRIT 31.5 % (36-48); MEAN CORPUSCULAR HEMOGLOBIN 30.5 pg (27.0-33.0); MEAN CORPUSCULAR VOLUME 89.7 fL (79-99); RED BLOOD CELL COUNT(AUTO) 3.51 MIL/uL (4.00-5.50); RED CELL DISTRIBUTION WIDTH 12.9 % (11.0-15.5); WHITE BLOOD COUNT (AUTO) 5.1 K/uL (4.8-10.8)
[2020-02-06 06:22] LABS: CREATININE 1.6 mg/dL (0.5-1.5); POTASSIUM 3.2 mmol/L (3.5-5.1)
[2020-02-06] MEDS: INSULIN HUMULIN R 100 UNIT/ML 3ML SQ SCH ×4 (07:09→20:51)
[2020-02-06] MEDS: INSULIN GLARGINE 100 UNITS/ML 10 ML VIAL SQ SCH ×2 (07:09→20:52)
[2020-02-06 07:50] VITALS: BP 116/40
[2020-02-06] MEDS ORDERED: NON-FORMULARY MEDICATION 1 EACH (Losartan Potassium 25 MG) PO SCH (09:00)
[2020-02-06] MEDS: POTASSIUM CHLORIDE 20 MEQ ERTAB PO SCH ×2 (09:33→20:47)
[2020-02-06] MEDS: TRAMADOL HCL 50 MG TABLET PO PRN ×2 (09:33→17:46)
[2020-02-06] MEDS: FLUTICASONE/VILANTEROL 1 EACH BLST.W.DEV IH SCH (09:34)
[2020-02-06] MEDS: LACTULOSE 20 GM/30 ML UDCUP PO SCH ×2 (09:34→20:46)
[2020-02-06] MEDS: FOLIC ACID 5 MG/ML 10 ML VIAL IV SCH (09:34)
[2020-02-06] MEDS: POTASSIUM CHLORIDE 20 MEQ ERTAB PO PRN (11:51)
[2020-02-06] MEDS: ONDANSETRON HCL 4 MG/2 ML VIAL IV PRN ×2 (11:55→21:24)
[2020-02-06 12:00] VITALS: BP 142/66
[2020-02-06 16:00] VITALS: BP 133/61
[2020-02-06 20:00] VITALS: BP 126/58
[2020-02-06] MEDS ORDERED: ZOLPIDEM TARTRATE 5 MG TAB PO PRN (21:45)
[2020-02-06] MEDS ORDERED: ZOLPIDEM TARTRATE 5 MG TAB ONE (22:11)
[2020-02-07] VITALS (7 sets, daily range): BP systolic 112–150; BP diastolic 50–119
[2020-02-07] MEDS: SODIUM CHLORIDE 0.9% 1000ML 1,000 ML IV SCH (04:32)
[2020-02-07 05:32] LABS: CREATININE 1.4 mg/dL (0.5-1.5); POTASSIUM 3.7 mmol/L (3.5-5.1)
[2020-02-07] MEDS: INSULIN HUMULIN R 100 UNIT/ML 3ML SQ SCH ×4 (05:56→20:57)
[2020-02-07] MEDS: INSULIN GLARGINE 100 UNITS/ML 10 ML VIAL SQ SCH ×2 (06:29→20:57)
[2020-02-07] MEDS: Vitamin B Complex/Vit C/Folic Acid PO SCH (09:00)
[2020-02-07] MEDS: POTASSIUM CHLORIDE 20 MEQ ERTAB PO SCH ×2 (09:00→20:49)
[2020-02-07] MEDS: LACTULOSE 20 GM/30 ML UDCUP PO SCH ×2 (09:00→20:49)
[2020-02-07] MEDS ORDERED: METOCLOPRAMIDE 5 MG TABLET ONE (09:11)
[2020-02-07] MEDS ORDERED: PROCHLORPERAZINE EDISYLATE 5 MG/ML 2 ML VIAL IM PRN (09:15)
[2020-02-07] MEDS ORDERED: METOCLOPRAMIDE 5 MG TABLET PO SCH (10:08)
[2020-02-07] MEDS: FLUTICASONE/VILANTEROL 1 EACH BLST.W.DEV IH SCH (10:50)
[2020-02-07] MEDS: METOCLOPRAMIDE 5 MG TABLET PO SCH ×3 (11:05→20:48)
[2020-02-07] MEDS ORDERED: COMPOUND IV MISC 1 EACH IVSOLN MISC PRN (14:45)
[2020-02-07] MEDS ORDERED: ZOLPIDEM TARTRATE 5 MG TAB PO PRN (22:30)
[2020-02-07] MEDS ORDERED: ONDANSETRON 4 MG TABLET PO PRN (22:30)
[2020-02-08 04:00] VITALS: BP 121/44
[2020-02-08] MEDS ORDERED: HYDROCODONE/ACETAMINOPHEN 5/325 MG TAB PO PRN (04:15)
[2020-02-08 04:48] LABS: CREATININE 1.2 mg/dL (0.5-1.5); POTASSIUM 3.6 mmol/L (3.5-5.1)
[2020-02-08] MEDS: INSULIN HUMULIN R 100 UNIT/ML 3ML SQ SCH ×2 (05:31→11:34)
[2020-02-08] MEDS: POTASSIUM CHLORIDE 20 MEQ ERTAB PO PRN (06:14)
[2020-02-08] MEDS: METOCLOPRAMIDE 5 MG TABLET PO SCH ×2 (06:14→08:50)
[2020-02-08] MEDS ORDERED: INSULIN GLARGINE 100 UNITS/ML 10 ML VIAL SQ SCH (07:30)
[2020-02-08 08:07] VITALS: BP 123/52
[2020-02-08] MEDS: POTASSIUM CHLORIDE 20 MEQ ERTAB PO SCH (08:50)
[2020-02-08] MEDS: Vitamin B Complex/Vit C/Folic Acid PO SCH (08:50)
[2020-02-08] MEDS: FLUTICASONE/VILANTEROL 1 EACH BLST.W.DEV IH SCH (08:50)
[2020-02-08] MEDS: LACTULOSE 20 GM/30 ML UDCUP PO SCH (08:50)
[2020-02-08] MEDS ORDERED: RIFA550T PO (09:23)
[2020-02-08] MEDS ORDERED: LACT10SO9 PO (09:25)
[2020-02-08 11:54] VITALS: BP 142/57
== END 2020-02-08 15:20 | disposition home or self-care (01) | DRG 682 ==
LOC: EDH 20:07 → EDHIP 21:30 → 3BH 22:19
PROVIDERS: ADMIT Internal Medicine; ATTEND Internal Medicine
DX: N17.9 Acute kidney failure, unspecified (principal); G93.41 Metabolic encephalopathy; E86.0 Dehydration; E11.42 Type 2 diabetes mellitus with diabetic polyneuropathy; K74.60 Unspecified cirrhosis of liver; E11.22 Type 2 diabetes mellitus with diabetic chronic kidney disease; E11.65 Type 2 diabetes mellitus with hyperglycemia; E78.1 Pure hyperglyceridemia; F51.04 Psychophysiologic insomnia; J45.909 Unspecified asthma, uncomplicated; I67.9 Cerebrovascular disease, unspecified; D69.6 Thrombocytopenia, unspecified; I12.9 Hypertensive chronic kidney disease with stage 1 through stage 4 chronic kidney disease, or unspecified chronic kidney disease; M85.80 Other specified disorders of bone density and structure, unspecified site; N18.2 Chronic kidney disease, stage 2 (mild); Z79.4 Long term (current) use of insulin; Z79.51 Long term (current) use of inhaled steroids; Z79.899 Other long term (current) drug therapy; Z80.3 Family history of malignant neoplasm of breast; Z80.41 Family history of malignant neoplasm of ovary; Z82.49 Family history of ischemic heart disease and other diseases of the circulatory system; Z83.3 Family history of diabetes mellitus; Z90.710 Acquired absence of both cervix and uterus; Z88.1 Allergy status to other antibiotic agents; Z88.5 Allergy status to narcotic agent; Z90.49 Acquired absence of other specified parts of digestive tract; Z87.81 Personal history of (healed) traumatic fracture
CPT/HCPCS: 36415; 36600; 70450; 70551; 71045; 80048; 80053; 80305; 81001; 82140; 82550; 82803; 82948; 83721; 83735; 84484; 85025; 85027; 85610; 85730; 93005; 97039; G0378; J1815; J2405; J3490; J7030